=== PATIENT | male | born 1955 | race Caucasian/White ===

== ENCOUNTER 2021-09-16 03:47 | Outpatient (CLI) | payer MEDICARE, SELFPAY ==
[2021-09-16 10:59] LABS: Glucose 96 mg/dL (74-106)
[2021-09-16 18:02] LABS: PSA, Screening 0.2 ng/mL (0.0-4.5)
== END 2021-09-16 03:48 | disposition home or self-care (01) ==
LOC: LBO 03:48
PROVIDERS: PCP Nurse Practitioner; Visit Provider Nurse Practitioner
DX: Z12.5 Encounter for screening for malignant neoplasm of prostate (principal); Z13.1 Encounter for screening for diabetes mellitus
CPT/HCPCS: 36415; 82947; 84153

== ENCOUNTER 2022-10-17 11:31 | Outpatient (REF) | payer MEDICARE, OTHER, SELFPAY ==
[2022-10-18 12:16] LABS: COMMENT (LAB VIEW ONLY) 224.54 mg/dL
== END 2022-10-17 11:32 | disposition home or self-care (01) ==
LOC: LBN 11:31
PROVIDERS: PCP Nurse Practitioner Family; Visit Provider Nurse Practitioner Family
DX: R35.1 Nocturia (principal); I10 Essential (primary) hypertension
CPT/HCPCS: 82043; 82570

== ENCOUNTER 2022-12-14 09:56 | Outpatient (CLI) | payer MEDICARE, OTHER, SELFPAY ==
[2022-12-14 13:43] LABS: HGB 14.9 g/dL (13.5-17.5); MCH 30.2 pg (27.0-33.0); MCHC 33.9 % (32.0-36.0); MCV 89 fL (80-95); MPV 10.4 fL (8.0-11.0); Platelet Count 236 10^3/uL (130-400); RBC 4.94 10^6/uL (4.36-5.78); RDW 13.6 % (11.8-14.1); RDW-SD 44.5 fL; WBC 6.28 10^3/uL (4.4-10.8)
[2022-12-14 14:13] LABS: ALT 88 U/L (16-63); AST 29 U/L (15-37); Albumin 3.6 g/dL (3.4-5.0); Alkaline Phosphatase 285 U/L (46-116); Anion Gap 6.9 mmol/L (3-11); BUN 21 mg/dL (7-18); Bilirubin, Total 0.6 mg/dL (0.2-1.0); CO2 30.1 mmol/L (21.0-32.0); CREATININE 0.9 mg/dL (0.70-1.30); Calcium 8.6 mg/dL (8.5-10.1); Calculated LDL 107 mg/dL (<100); Chloride 105 mmol/L (98-107); Cholesterol 172 mg/dL (<200); Estimated GFR 93.03 (mL/min/1.73m2); Glucose 111 mg/dL (74-106); HDL Cholesterol 45 mg/dL (40-60); Potassium 3.8 mmol/L (3.5-5.1); Sodium 142 mmol/L (136-145); Total Protein 7.4 g/dL (6.4-8.2); Triglyceride 100 mg/dL (<150)
== END 2022-12-14 09:57 | disposition home or self-care (01) ==
LOC: LBO 09:56
PROVIDERS: PCP Nurse Practitioner Family; Visit Provider Nurse Practitioner Family
DX: I10 Essential (primary) hypertension (principal); Z01.30 Encounter for examination of blood pressure without abnormal findings
CPT/HCPCS: 36415; 80053; 80061; 85027

== ENCOUNTER 2023-05-21 03:50 | Outpatient (CLI) | payer MEDICARE, OTHER, SELFPAY ==
[2023-05-21 09:13] LABS: ALT 26 U/L (16-63); AST 18 U/L (15-37); Albumin 3.7 g/dL (3.4-5.0); Alkaline Phosphatase 104 U/L (46-116); Anion Gap 6.4 mmol/L (3-11); BUN 22 mg/dL (7-18); Bilirubin, Total 0.4 mg/dL (0.2-1.0); CO2 27.6 mmol/L (21.0-32.0); Calcium 9.2 mg/dL (8.5-10.1); Chloride 105 mmol/L (98-107); Estimated GFR 81.47 (mL/min/1.73m2); Glucose 98 mg/dL (74-106); Potassium 3.9 mmol/L (3.5-5.1); Sodium 139 mmol/L (136-145); Total Protein 7.2 g/dL (6.4-8.2)
== END 2023-05-21 03:51 | disposition home or self-care (01) ==
PROVIDERS: PCP Nurse Practitioner Family; Visit Provider Nurse Practitioner Family
DX: I10 Essential (primary) hypertension (principal)
CPT/HCPCS: 36415; 80053

== ENCOUNTER 2024-03-19 03:16 | Outpatient (CLI) | payer MEDICARE, OTHER, SELFPAY ==
[2024-03-19 16:20] LABS: Hemoglobin A1C 5.4 % (<5.7)
[2024-03-19 17:11] LABS: Anion Gap 8.1 mmol/L (3-11); BUN 18 mg/dL (7-18); CO2 27.9 mmol/L (21.0-32.0); CREATININE 0.9 mg/dL (0.70-1.30); Chloride 105 mmol/L (98-107); Estimated GFR 91.88 (mL/min/1.73m2); Glucose 98 mg/dL (74-106); Magnesium 2.1 mg/dL (1.8-2.4); Potassium 4.4 mmol/L (3.5-5.1); Sodium 141 mmol/L (136-145); TSH (W/Ref FT4) 2.29 uIU/mL (0.36-3.74)
== END 2024-03-19 03:17 | disposition home or self-care (01) ==
LOC: LBO 03:17
PROVIDERS: PCP Nurse Practitioner Family; Visit Provider Nurse Practitioner Family
DX: R55 Syncope and collapse (principal)
CPT/HCPCS: 36415; 80048; 83036; 83735; 84443